=== PATIENT | male | born 1975 | race Caucasian/White ===

== ENCOUNTER 2016-12-20 16:07 | Emergency (ER) | payer SELFPAY ==
--- NOTE | 2016-12-21 09:55 | ER ---
ADMIT: 12/20/2016 RM/LOC: ER [facility] MR#: [id number] [id number] TAMARA PRATER [address] [place] [address] Emergency Room Report SEX: M AGE: 41 : 1975 DATE: 12/20/2016 CHIEF COMPLAINT: Groin pain. HISTORY OF PRESENT ILLNESS: A 41-year-old male presents for 4 hours duration of right-sided groin pain. Certainly, this awoke him from his sleep with severe right testicle pain. This subsequently moved up into his lower right abdomen very uncomfortable. Currently, he rates the pain as a 9/10. He denies any difficulty urinating. No burning or urgency. There is no discharge from his penis. He states he is sexually active; however, he has not had sexual contact in more than a month. He has no known exposures to STDs or recent unprotected sex. He has some vague right lower quadrant pain. Denies any lifting, twisting, bending mechanisms or history of any hernias. Admits to mild nausea. He has not vomited. No fevers or chills. No past medical history. No surgical history. He took some amoxicillin prior to arrival thinking this could be infectious that he had left over from a dental infection. ALLERGIES: NO KNOWN DRUG ALLERGIES. COURSE IN THE EMERGENCY ROOM: The patient was seen and examined. GENERAL: Afebrile, nontoxic, mild amount of distress. He is quite anxious. ABDOMEN: Physical examination of the abdomen reveals some right lower quadrant tenderness not about [place] point certainly lower almost pelvic pain. GENITALIA: On inspection of genital, he is circumcised. There is no active discharge. There is mild amount of scrotal swelling and significant tenderness to palpation of the right testicle and right epididymis. HEENT: Normocephalic and atraumatic. NECK: Soft and supple. CHEST: Clear. HEART: Regular. BACK: No CVA tenderness. EXTREMITIES: Nontender. There is no pedal edema. SKIN: Warm and dry. NEUROLOGIC: He is alert, awake, cooperative with exam. While in department, we did give him 4 of Zofran as well as 15 mg of Toradol IM. Did obtain a testicular ultrasound to rule out torsion, returns with ADMIT: 12/20/2016 RM/LOC: [facility] MR#: [id number] [address] [id number] TAMARA PRATER [address] [place] [address] Emergency Room Report SEX: M AGE: 41 : 1975 epididymitis. No evidence of torsion. While in the department, he received 250 mg of Rocephin IM. Subsequently, discharged to start Levaquin. CLINICAL IMPRESSION: Right epididymitis. DISPOSITION: Levaquin 500 mg 1 tab daily for 10 days. Activity as tolerated. Return with worsening symptoms. Follow up with primary as needed. Elevate the scrotum with supportive underwear for pain relief. Discharged home in stable condition. AB Rasheed / Doron Rod MD / modl JOB #: [id number] CC: Doron Rod MD, Attending Physician Milton Robin MD, Family Physician
== END 2016-12-20 18:40 | disposition home or self-care (01) ==
LOC: ER 16:07
DX: N45.1 Epididymitis (principal); F17.210 Nicotine dependence, cigarettes, uncomplicated